=== PATIENT | female | born 1970 | race Caucasian/White ===

== ENCOUNTER 2022-04-20 08:58 | Outpatient (CLI) | payer OTHER, SELFPAY ==
[2022-04-20 13:46] LABS: Chloride* 99 mmol/L (96-114); Potassium* 4.1 mmol/L (3.6-5.1); Sodium* 139 mmol/L (135-149)
[2022-04-20 13:49] LABS: Blood Urea Nitrogen* 15 mg/dL (7-30); Carbon Dioxide* 31 mmol/L (20-32); Cholesterol* 178 mg/dL (90-199); Creatinine* 0.6 mg/dL (0.5-1.5); Estimated Glomerular Filt Rate 107 ml/min; Glucose* 109 mg/dL (60-115)
[2022-04-20 13:50] LABS: Calcium* 9.7 mg/dL (8.4-10.6); HDL Cholesterol* 67 mg/dL (>=50); LDL Cholesterol Calculated 99 mg/dL (<100); Triglycerides* 60 mg/dL (40-149)
[2022-04-24 13:24] LABS: Thyroid Stimulating Hormone* 0.899 uIU/mL (0.270-4.20)
[2022-04-24 13:42] LABS: Vitamin B12* 315 pg/mL (243-894)
== END 2022-04-20 08:59 | disposition home or self-care (01) ==
PROVIDERS: PCP Physician Assistant Medical; Visit Provider Physician Assistant Medical
DX: Z01.419 Encounter for gynecological examination (general) (routine) without abnormal findings (principal); F02.80 Dementia in other diseases classified elsewhere, unspecified severity, without behavioral disturbance, psychotic disturbance, mood disturbance, and anxiety; Z13.6 Encounter for screening for cardiovascular disorders
CPT/HCPCS: 80048; 80061; 82607; 84443

== ENCOUNTER 2022-06-13 15:39 | Outpatient (CLI) | payer OTHER, SELFPAY ==
--- NOTE | 2022-06-13 15:40 | CRLHL7_ITS ---
For Patients: As a result of the Century Cures Act, medical imaging exams and procedure reports are released immediately into your electronic medical record. You may view this report before your referring provider. If you have questions, please contact your health care provider. BILATERAL SCREENING MAMMOGRAM WITH COMPUTER-AIDED DETECTION AND TOMOSYNTHESIS TECHNIQUE: CC and MLO views were obtained. These mammographic images have been obtained using full-field digital technique. These mammographic images were interpreted with the benefit of computer-aided detection. Breast Tomosynthesis was used in this interpretation. COMPARISON FILM: 08/01/2019, 07/26/2017, 03/12/2015. FINDINGS: The breasts are heterogeneously dense, which may obscure small masses IMPRESSION: There is no radiographic evidence for malignancy. ASSESSMENT: BI-RADS Category 1: Negative RECOMMENDATION: Routine screening mammogram in 1 year. A lay language report of this examination will be provided to the patient. Bereket Munoz M.D. Diagnostic Radiologist [email or web address] Transcribed: 4:11 pm DW/Dictated by: Bereket Munoz MD @ 06/14/2022 8:34:00 AM (Electronically Signed)
== END 2022-06-13 15:40 | disposition home or self-care (01) ==
LOC: MAMMO 15:40
PROVIDERS: PCP Physician Assistant Medical; Visit Provider Physician Assistant Medical
DX: Z12.31 Encounter for screening mammogram for malignant neoplasm of breast (principal); R92.2 Inconclusive mammogram
CPT/HCPCS: 77063; 77067

== ENCOUNTER 2023-09-24 08:50 | Outpatient (CLI) | payer OTHER, SELFPAY | END 2023-09-24 08:51 | disposition home or self-care (01) | PROVIDERS: PCP Physician Assistant Medical; Visit Provider Physician Assistant Medical | DX: R41.89 Other symptoms and signs involving cognitive functions and awareness (principal); Z13.228 Encounter for screening for other metabolic disorders; Z13.220 Encounter for screening for lipoid disorders | CPT/HCPCS: 80053; 80061 ==

== ENCOUNTER 2024-12-08 14:28 | Outpatient (CLI) | payer OTHER, SELFPAY | END 2024-12-08 14:29 | disposition home or self-care (01) | PROVIDERS: PCP Physician Assistant Medical; Visit Provider Physician Assistant Medical | DX: Z00.00 Encounter for general adult medical examination without abnormal findings (principal); G30.0 Alzheimer's disease with early onset; F02.80 Dementia in other diseases classified elsewhere, unspecified severity, without behavioral disturbance, psychotic disturbance, mood disturbance, and anxiety; Z13.6 Encounter for screening for cardiovascular disorders; Z13.21 Encounter for screening for nutritional disorder | CPT/HCPCS: 80053; 80061; 82306; 82607; 84443 ==